=== PATIENT | female | born 1965 | race Caucasian/White ===

== ENCOUNTER → 2017-01-26 | Outpatient (CLI) | payer OTHER ==
[~2017-01-26] MED LIST: AMBIEN10 M1 PO; ASPIRIN325 M2 PO; BACTRIM DS 8001 TA1 PO; BENTYL20 MG PO; CIPRO500 MG PO; CLINDAMYCIN HC300 MG PO; CYCLOBENZAPRINE10 MG PO; Carafate1 GM PO; DARVOCET N 1001 TAB PO; DAYPRO600 M1 PO; DIFLUCAN150 MG PO; DOXYCYCLINE100 M3 PO; EUCERIN T; EUCERIN, DERMA120 GM T; FLEXERIL10 MG PO; FLUOXETINE40 MG PO; HEPARIN IV; HYDROCODONE BIT1 T11 PO; IMITREX50 MG PO; LASIX20 MG PO; LEVOFLOXACIN500 MG PO; LIPITOR80 MG PO; LUNESTA2 MG PO; MACROBID100 M1 PO; METFORMIN500 MG PO; MIRALAX POWDER17 G1 PO; MONISTAT 7100 MG VG; MONISTAT DERM2% T; MOTRIN800 MG PO; NEOSPORIN1 OIN T; NEURONTIN300 MG PO; NO DAILY MEDS; OXYCODONE HCL5 MG PO; PERCOCET 325 MG1 TA7 PO; PRILOSEC20 MG PO; PROZAC20 MG PO; ROXICODONE5 MG PO; SALINE FLUSH IV; Synthroid,Levo50 MCG PO; TUMS 500500 MG PO; VANCOMYCIN HYDRO1 GM IV; VICODIN 5/500 505 MG PO; VITAMIN D50000 I3 PO; XANAX2 M1 PO; XANAX2 MG PO; [UNRECOGNIZED DRUG - OTHER] IV
[2017-01-26 10:30] LABS: BASO % 0.3 % (0.0-1.0); EOS # 0.1 10*3/uL (0.0-0.4); EOS % 1.1 % (1.0-4.0); HEMATOCRIT 39.5 % (37.0-47.0); LYMPH # 2.3 10*3/uL (1.3-4.4); LYMPH % 20.7 % (27.0-41.0); MEAN CELL VOLUME 92.3 fl (81.0-99.0); MEAN CORPUSCULAR HGB 30.4 pg (27.0-31.0); MEAN CORPUSCULAR HGB CONC 32.9 g/dl (33.0-37.0); MEAN PLATELET VOLUME 9.1 fl (9.6-12.3); MONO # 0.7 10*3/uL (0.1-1.0); NEUT # 8.1 10*3/uL (2.3-7.9); NEUT % 71.7 % (47.0-73.0); PLATELET COUNT AUTOMATED 448 10*3/uL (130-400); RED BLOOD COUNT 4.28 10*6/uL (4.10-5.10); RED CELL DISTRI WIDTH 13.2 % (0-14.5); WHITE BLOOD COUNT 11.3 10*3/uL (4.8-10.8)
== END | disposition home or self-care (01) ==
LOC: ORTHO 09:11
PROVIDERS: Orthopaedic Surgery
DX: S83.8X2A Sprain of other specified parts of left knee, initial encounter (principal); L03.116 Cellulitis of left lower limb; M25.562 Pain in left knee; M25.462 Effusion, left knee; S83.242A Other tear of medial meniscus, current injury, left knee, initial encounter; Z89.9 Acquired absence of limb, unspecified; X58.XXXA Exposure to other specified factors, initial encounter; Y93.89 Activity, other specified; Y92.89 Other specified places as the place of occurrence of the external cause; Y99.8 Other external cause status

== ENCOUNTER → 2017-02-07 | Outpatient (CLI) | payer OTHER ==
[2017-02-07 12:24] LABS: BASO # 0.1 10*3/uL (0.0-0.1); BASO % 0.5 % (0.0-1.0); EOS # 0.1 10*3/uL (0.0-0.4); HEMATOCRIT 43.5 % (37.0-47.0); HEMOGLOBIN 13.9 g/dl (12.0-16.0); LYMPH % 29.8 % (27.0-41.0); MEAN CORPUSCULAR HGB 29.4 pg (27.0-31.0); MEAN PLATELET VOLUME 9.8 fl (9.6-12.3); MONO # 0.5 10*3/uL (0.1-1.0); MONO % 5.3 % (3.0-9.0); NEUT # 6.4 10*3/uL (2.3-7.9); NEUT % 63.1 % (47.0-73.0); PLATELET COUNT AUTOMATED 470 10*3/uL (130-400); RED BLOOD COUNT 4.73 10*6/uL (4.10-5.10); RED CELL DISTRI WIDTH 13.2 % (0-14.5); WHITE BLOOD COUNT 10.2 10*3/uL (4.8-10.8)
== END | disposition home or self-care (01) ==
LOC: ORTHO 01:57 → LAB 14:00 → ORTHO 17:26
PROVIDERS: Orthopaedic Surgery
DX: M25.562 Pain in left knee (principal); L03.116 Cellulitis of left lower limb

== ENCOUNTER → 2017-06-16 | Outpatient (CLI) | payer OTHER | END | disposition home or self-care (01) | LOC: MAMMO 10:11 | DX: Z12.31 Encounter for screening mammogram for malignant neoplasm of breast (principal) ==

== ENCOUNTER 2017-11-28 12:15 | Emergency (ER) | payer OTHER ==
[~2017-11-28] VITALS: Ht 167.6 cm; Wt 86.2 kg
[2017-11-28 12:20] VITALS: BP 144/90
== END 2017-11-28 13:12 | disposition home or self-care (01) ==
LOC: ED 12:15
DX: S90.31XA Contusion of right foot, initial encounter (principal); R03.0 Elevated blood-pressure reading, without diagnosis of hypertension; Z88.6 Allergy status to analgesic agent; Z79.82 Long term (current) use of aspirin; Z79.899 Other long term (current) drug therapy; W22.03XA Walked into furniture, initial encounter; Y93.89 Activity, other specified; Y92.89 Other specified places as the place of occurrence of the external cause; Y99.8 Other external cause status

== ENCOUNTER → 2020-06-12 | Outpatient (CLI) | payer OTHER | END | disposition home or self-care (01) | LOC: MAMMO 03:18 | PROVIDERS: ATTEND Physician Assistant | DX: Z12.31 Encounter for screening mammogram for malignant neoplasm of breast (principal) ==

== ENCOUNTER → 2021-12-21 | Outpatient (CLI) | payer OTHER | END | disposition home or self-care (01) | LOC: CARD 08:00 | PROVIDERS: ATTEND Physician Assistant | DX: R00.2 Palpitations (principal) ==

== ENCOUNTER 2022-03-13 22:11 | Emergency (ER) | payer OTHER ==
[~2022-03-13] VITALS: Ht 165.1 cm; Wt 94.3 kg
[2022-03-13 22:37] VITALS: BP 160/73
== END 2022-03-13 23:01 | disposition home or self-care (01) ==
LOC: ED 22:11
DX: U07.1 COVID-19 (principal); M79.89 Other specified soft tissue disorders; Z88.8 Allergy status to other drugs, medicaments and biological substances; Z79.82 Long term (current) use of aspirin; Z79.899 Other long term (current) drug therapy; Z90.710 Acquired absence of both cervix and uterus; Z90.49 Acquired absence of other specified parts of digestive tract; Z98.51 Tubal ligation status

== ENCOUNTER → 2022-03-14 | Outpatient (CLI) | payer OTHER | END | disposition home or self-care (01) | LOC: US 08:17 | PROVIDERS: ATTEND Internal Medicine | DX: U07.1 COVID-19 (principal); R22.42 Localized swelling, mass and lump, left lower limb ==

== ENCOUNTER → 2022-03-25 | Outpatient (CLI) | payer OTHER | END | disposition home or self-care (01) | LOC: MAMMO 00:08 | PROVIDERS: ATTEND Physician Assistant | DX: Z12.31 Encounter for screening mammogram for malignant neoplasm of breast (principal) ==

== ENCOUNTER → 2022-07-05 | Outpatient (CLI) | payer OTHER | END | disposition home or self-care (01) | LOC: MRI 07-02 08:00 | PROVIDERS: ATTEND Physician Assistant | DX: I67.82 Cerebral ischemia (principal); H53.8 Other visual disturbances; R90.82 White matter disease, unspecified ==

== ENCOUNTER → 2023-06-20 | Outpatient (CLI) | payer OTHER | END | disposition home or self-care (01) | LOC: RAD 06-17 00:32 | PROVIDERS: ATTEND Nurse Practitioner Women's Health | DX: S49.92XA Unspecified injury of left shoulder and upper arm, initial encounter (principal); M19.012 Primary osteoarthritis, left shoulder; W19.XXXA Unspecified fall, initial encounter; Y93.89 Activity, other specified; Y92.89 Other specified places as the place of occurrence of the external cause; Y99.8 Other external cause status ==

== ENCOUNTER → 2023-06-29 | Outpatient (CLI) | payer OTHER | END | disposition home or self-care (01) | LOC: MAMMO 01:25 | PROVIDERS: ATTEND Physician Assistant | DX: Z12.31 Encounter for screening mammogram for malignant neoplasm of breast (principal) ==

== ENCOUNTER → 2023-08-17 | Outpatient (CLI) | payer OTHER | END | disposition home or self-care (01) | LOC: MRI 08-12 00:27 | PROVIDERS: ATTEND Nurse Practitioner Women's Health | DX: S46.812A Strain of other muscles, fascia and tendons at shoulder and upper arm level, left arm, initial encounter (principal); M19.012 Primary osteoarthritis, left shoulder; M65.812 Other synovitis and tenosynovitis, left shoulder; M25.812 Other specified joint disorders, left shoulder; M79.602 Pain in left arm; X58.XXXA Exposure to other specified factors, initial encounter; Y93.89 Activity, other specified; Y92.89 Other specified places as the place of occurrence of the external cause; Y99.8 Other external cause status ==

== ENCOUNTER 2023-11-22 08:56 | Inpatient (IN) | payer OTHER ==
[~2023-11-22] VITALS: Ht 165.1 cm; Wt 88.1 kg
[~2023-11-22 08:56] MED LIST changes: -ASPIRIN325 M2 PO; +GOOD SENSE ASP325 MG PO
[2023-11-22 09:02] VITALS: BP 140/65
[2023-11-22 09:48] LABS: BASO % 0.4 % (0.0-1.0); EOS # 0.1 10*3/uL (0.0-0.4); EOS % 1.2 % (1.0-4.0); HEMATOCRIT 40.6 % (37.0-47.0); LYMPH % 22.3 % (27.0-41.0); MEAN CELL VOLUME 92.1 fl (81.0-99.0); MEAN CORPUSCULAR HGB 28.3 pg (27.0-31.0); MEAN CORPUSCULAR HGB CONC 30.8 g/dl (33.0-37.0); MEAN PLATELET VOLUME 9.2 fl (9.6-12.3); MONO # 0.5 10*3/uL (0.1-1.0); NEUT # 6.4 10*3/uL (2.3-7.9); NEUT % 70.8 % (47.0-73.0); PLATELET COUNT AUTOMATED 397 10*3/uL (130-400); RED BLOOD COUNT 4.41 10*6/uL (4.10-5.10); RED CELL DISTRI WIDTH 13.6 % (0-14.5); WHITE BLOOD COUNT 9.1 10*3/uL (4.8-10.8)
[2023-11-22 10:18] LABS: ALKALINE PHOSPHATASE 125 U/L (46-116); BUN 11 mg/dl (9-23); CHLORIDE 111 mmol/L (98-107); POTASSIUM 3.9 mmol/L (3.4-5.1); SGPT/ALT 38 U/L (5-49); TOTAL PROTEIN 7.2 gm/dL (6.0-8.0)
[2023-11-22] MEDS ORDERED: Piperacillin Sodium/Tazobact 50 ML IV ONE (11:25)
[2023-11-22] MEDS ORDERED: Vancomycin Hydrochloride 250 ML IV ONE (11:25)
[2023-11-22] MEDS ORDERED: SODIUM CHLORIDE 0.9% 1,000 ML IV ONE (11:25)
[2023-11-22] MEDS ORDERED: TOPAMAX100 M1 PO (11:53)
[2023-11-22] MEDS ORDERED: Magnesium Hydroxide 30 ML UDC PO PRN (12:00)
[2023-11-22] MEDS ORDERED: Acetaminophen/Hydrocodone 5 MG/325 MG TABLET PO PRN (12:00)
[2023-11-22] MEDS ORDERED: BISACODYL 5 MG TAB PO PRN (12:00)
[2023-11-22] MEDS ORDERED: MORPHINE Sulfate 2 MG/ML SYR IV PRN (12:00)
[2023-11-22] MEDS ORDERED: ACETAMINOPHEN 325 MG TAB PO PRN (12:00)
[2023-11-22] MEDS ORDERED: Ondansetron Hydrochloride 4 MG/2 ML VIAL IV PRN (12:00)
[2023-11-22 16:05] VITALS: BP 118/54
[2023-11-22] MEDS ORDERED: Piperacillin Sodium/Tazobact 50 ML IV SCH (18:00)
[2023-11-22 18:53] VITALS: BP 120/49
[2023-11-22 20:03] VITALS: BP 107/48
[2023-11-22 20:45] VITALS: BP 149/68
[2023-11-22] MEDS ORDERED: PANTOPRAZOLE SO40 MG PO (21:02)
[2023-11-22] MEDS ORDERED: VANCOMYCIN/WATER FOR INJ (PEG) 300 ML IV SCH (22:00)
[2023-11-23] VITALS: BP 92/44
[2023-11-23] MEDS ORDERED: Pantoprazole Sodium 40 MG TAB PO SCH (06:24)
[2023-11-23 06:29] LABS: BASO # 0.1 10*3/uL (0.0-0.1); BASO % 0.7 % (0.0-1.0); EOS # 0.2 10*3/uL (0.0-0.4); EOS % 2.2 % (1.0-4.0); HEMATOCRIT 36.8 % (37.0-47.0); LYMPH # 2.1 10*3/uL (1.3-4.4); LYMPH % 31.3 % (27.0-41.0); MEAN CORPUSCULAR HGB CONC 31.5 g/dl (33.0-37.0); MEAN PLATELET VOLUME 9.5 fl (9.6-12.3); MONO # 0.4 10*3/uL (0.1-1.0); MONO % 5.7 % (3.0-9.0); PLATELET COUNT AUTOMATED 359 10*3/uL (130-400); RED CELL DISTRI WIDTH 13.8 % (0-14.5); WHITE BLOOD COUNT 6.7 10*3/uL (4.8-10.8)
[2023-11-23 06:31] LABS: ACT PARTIAL THROMBO TIME 31.4 SECONDS (20.0-32.1)
[2023-11-23 06:44] LABS: ALKALINE PHOSPHATASE 118 U/L (46-116); BUN 11 mg/dl (9-23); CHLORIDE 112 mmol/L (98-107); CHOLESTEROL 127 mg/dL (<200); LDL CHOLESTEROL 64 mg/dL (9-159); POTASSIUM 3.6 mmol/L (3.4-5.1); SGPT/ALT 70 U/L (5-49); TOTAL PROTEIN 6.2 gm/dL (6.0-8.0); TRIGLYCERIDES 108 mg/dl (<150)
[2023-11-23 08:00] VITALS: BP 109/58
[2023-11-23] MEDS ORDERED: NYSTATIN 500,000 UNITS/5 ML UDC PO SCH ×2 (08:20→10:00)
[2023-11-23] MEDS ORDERED: Cholecalciferol 2,000 UNIT TABLET (50 MCG) PO SCH (10:00)
[2023-11-23] MEDS ORDERED: FUROSEMIDE 20 MG TAB PO SCH (10:00)
[2023-11-23] MEDS ORDERED: Fluoxetine Hydrochloride 20 MG CAP PO SCH (10:00)
[2023-11-23] MEDS ORDERED: Enoxaparin Sodium 40 MG/0.4 ML SYR SC SCH (11:35)
[2023-11-23 12:00] VITALS: BP 111/54
[2023-11-23] MEDS ORDERED: FLUCONAZOLE 150 MG TAB PO ONE (12:25)
[2023-11-23] MEDS ORDERED: GABAPENTIN 300 MG CAP PO SCH (14:00)
[2023-11-23 16:00] VITALS: BP 122/54
[2023-11-23 20:00] VITALS: BP 111/49
[2023-11-23] MEDS ORDERED: ATORVASTATIN CALCIUM 80 MG TAB PO SCH (22:00)
[2023-11-23] MEDS ORDERED: NYSTATIN CREAM 15 GM TUBE T SCH (22:00)
[2023-11-23] MEDS ORDERED: ASPIRIN 325 MG TAB PO SCH (22:00)
[2023-11-23] MEDS ORDERED: TOPIRAMATE 100 MG TAB PO SCH (22:00)
[2023-11-23] MEDS ORDERED: MUPIROCIN 15 GM TUBE T SCH (22:00)
[2023-11-24] VITALS: BP 100/47
[2023-11-24 06:28] LABS: BASO % 0.6 % (0.0-1.0); EOS # 0.2 10*3/uL (0.0-0.4); EOS % 2.5 % (1.0-4.0); HEMATOCRIT 37.7 % (37.0-47.0); MEAN CORPUSCULAR HGB 29.1 pg (27.0-31.0); MEAN CORPUSCULAR HGB CONC 32.4 g/dl (33.0-37.0); MEAN PLATELET VOLUME 9.2 fl (9.6-12.3); MONO # 0.5 10*3/uL (0.1-1.0); NEUT # 4.1 10*3/uL (2.3-7.9); NEUT % 59.8 % (47.0-73.0); PLATELET COUNT AUTOMATED 366 10*3/uL (130-400); RED BLOOD COUNT 4.19 10*6/uL (4.10-5.10); RED CELL DISTRI WIDTH 13.9 % (0-14.5); WHITE BLOOD COUNT 6.8 10*3/uL (4.8-10.8)
[2023-11-24 06:48] LABS: ALKALINE PHOSPHATASE 146 U/L (46-116); BUN 10 mg/dl (9-23); CHLORIDE 110 mmol/L (98-107); POTASSIUM 3.4 mmol/L (3.4-5.1); SGPT/ALT 176 U/L (5-49); TOTAL PROTEIN 6.5 gm/dL (6.0-8.0)
[2023-11-24 08:00] VITALS: BP 109/54
[2023-11-24 12:00] VITALS: BP 106/53
[2023-11-24 16:00] VITALS: BP 110/55
[2023-11-24 20:00] VITALS: BP 130/62
[2023-11-25] VITALS: BP 121/55
[2023-11-25 05:59] LABS: ALKALINE PHOSPHATASE 148 U/L (46-116); BUN 10 mg/dl (9-23); CHLORIDE 109 mmol/L (98-107); POTASSIUM 3.5 mmol/L (3.4-5.1); SGPT/ALT 158 U/L (5-49); TOTAL PROTEIN 6.9 gm/dL (6.0-8.0)
[2023-11-25] MEDS ORDERED: OXYCODONE HCL (IR) 5 MG TAB PO PRN (06:10)
[2023-11-25 08:00] VITALS: BP 130/66
[2023-11-25] MEDS ORDERED: VIBRA-TAB100 MG PO (11:17)
[2023-11-25] MEDS ORDERED: VITAMIN D350 MCG PO (11:17)
[2023-11-25] MEDS ORDERED: NYSTATIN CREAM15 GM T (11:17)
== END 2023-11-25 11:47 | disposition home or self-care (01) | DRG 565 ==
LOC: ED 08:56 → 5E 11:47 → EDHOLD 11:47 → 4E 19:50 → 5E 19:51
PROVIDERS: Family Medicine; Internal Medicine; ADMIT Internal Medicine; ATTEND Internal Medicine
DX: T87.40 Infection of amputation stump, unspecified extremity (principal); B37.0 Candidal stomatitis; G45.9 Transient cerebral ischemic attack, unspecified; L03.818 Cellulitis of other sites; K21.9 Gastro-esophageal reflux disease without esophagitis; E66.9 Obesity, unspecified; E87.8 Other disorders of electrolyte and fluid balance, not elsewhere classified; E78.5 Hyperlipidemia, unspecified; E11.69 Type 2 diabetes mellitus with other specified complication; R74.01 Elevation of levels of liver transaminase levels; E11.65 Type 2 diabetes mellitus with hyperglycemia; E55.9 Vitamin D deficiency, unspecified; Z88.6 Allergy status to analgesic agent; Z88.8 Allergy status to other drugs, medicaments and biological substances; Z90.49 Acquired absence of other specified parts of digestive tract; Z98.891 History of uterine scar from previous surgery; Z90.710 Acquired absence of both cervix and uterus; Z98.51 Tubal ligation status; Z83.3 Family history of diabetes mellitus; Z86.73 Personal history of transient ischemic attack (TIA), and cerebral infarction without residual deficits

== ENCOUNTER → 2024-05-02 | Outpatient (CLI) | payer OTHER ==
[~2024-05-02] MED LIST changes: +NYSTATIN CREAM15 GM T; +PANTOPRAZOLE SO40 MG PO; +TOPAMAX100 M1 PO; +VIBRA-TAB100 MG PO; +VITAMIN D350 MCG PO
== END | disposition home or self-care (01) ==
LOC: RAD 10:30
PROVIDERS: ATTEND Nurse Practitioner Women's Health
DX: R06.02 Shortness of breath (principal); R06.2 Wheezing

== ENCOUNTER → 2024-06-19 | Outpatient (CLI) | payer OTHER ==
[~2024-06-19] MED LIST changes: +AMOX-CLAV 875-1 EACH PO; +BARIUM SULFATE 96% 176 GM BOT PO ONE; +BARIUM SULFATE TABLET 700 MG PO ONE; +VIBRAMYCIN100 MG PO
== END | disposition home or self-care (01) ==
LOC: RAD 11:36
PROVIDERS: ATTEND Nurse Practitioner Women's Health
DX: T81.49XA Infection following a procedure, other surgical site, initial encounter (principal); X58.XXXA Exposure to other specified factors, initial encounter; Y93.89 Activity, other specified; Y92.89 Other specified places as the place of occurrence of the external cause; Y99.8 Other external cause status

== ENCOUNTER 2024-06-20 08:58 | Emergency (ER) | payer OTHER ==
[~2024-06-20] VITALS: Ht 165.1 cm; Wt 93.0 kg
[~2024-06-20 08:58] MED LIST changes: -AMOX-CLAV 875-1 EACH PO; -BARIUM SULFATE 96% 176 GM BOT PO ONE; -BARIUM SULFATE TABLET 700 MG PO ONE; -VIBRAMYCIN100 MG PO
[2024-06-20 09:20] VITALS: BP 123/73
[2024-06-20] MEDS ORDERED: Doxycycline Hyclate 100 MG CAP PO ONE (09:50)
[2024-06-20] MEDS ORDERED: Piperacillin Sodium/Tazobact 100 ML IV ONE (09:50)
[2024-06-20 09:53] LABS: BASO # 0.1 10*3/uL (0.0-0.1); BASO % 0.6 % (0.0-1.0); EOS # 0.2 10*3/uL (0.0-0.4); EOS % 2.1 % (1.0-4.0); HEMATOCRIT 37.4 % (37.0-47.0); MEAN CELL VOLUME 88.6 fl (81.0-99.0); MEAN CORPUSCULAR HGB 29.1 pg (27.0-31.0); MEAN CORPUSCULAR HGB CONC 32.9 g/dl (33.0-37.0); MEAN PLATELET VOLUME 9.2 fl (9.6-12.3); MONO # 0.6 10*3/uL (0.1-1.0); MONO % 5.4 % (3.0-9.0); NEUT # 7.3 10*3/uL (2.3-7.9); NEUT % 69.5 % (47.0-73.0); PLATELET COUNT AUTOMATED 366 10*3/uL (130-400); RED BLOOD COUNT 4.22 10*6/uL (4.10-5.10); RED CELL DISTRI WIDTH 14.1 % (0-14.5); WHITE BLOOD COUNT 10.5 10*3/uL (4.8-10.8)
[2024-06-20 10:14] LABS: ALKALINE PHOSPHATASE 127 U/L (46-116); BUN 8 mg/dl (9-23); CHLORIDE 111 mmol/L (98-107); LIPASE 32 U/L (12-53); POTASSIUM 3.6 mmol/L (3.4-5.1); SGPT/ALT 21 U/L (5-49); TOTAL PROTEIN 7.4 gm/dL (6.0-8.0)
[2024-06-20] MEDS ORDERED: Ondansetron Hydrochloride 4 MG/2 ML VIAL IV ONE (10:50)
[2024-06-20] MEDS ORDERED: HYDROmorphONE Hydrochloride 0.5 MG/0.5 ML SYRINGE IV ONE (10:50)
[2024-06-20] MEDS ORDERED: IOHEXOL 350 MG/ML 100 ML VIAL IV ONE (12:35)
[2024-06-20] MEDS ORDERED: SODIUM CHLORIDE 0.9% 100 ML BAG IV ONE (12:35)
[2024-06-20] MEDS ORDERED: AMOX-CLAV 875-1 EACH PO (14:20)
[2024-06-20] MEDS ORDERED: VIBRAMYCIN100 MG PO (14:20)
== END 2024-06-20 14:35 | disposition home or self-care (01) ==
LOC: ED 08:58
PROVIDERS: Emergency Medicine
DX: R07.89 Other chest pain (principal); L03.116 Cellulitis of left lower limb; Z88.6 Allergy status to analgesic agent; Z88.8 Allergy status to other drugs, medicaments and biological substances; Z79.899 Other long term (current) drug therapy; Z79.82 Long term (current) use of aspirin; Z90.710 Acquired absence of both cervix and uterus; Z98.890 Other specified postprocedural states; Z98.51 Tubal ligation status; Z90.49 Acquired absence of other specified parts of digestive tract; Z89.512 Acquired absence of left leg below knee

== ENCOUNTER 2025-02-06 10:44 | Emergency (ER) | payer OTHER ==
[~2025-02-06] VITALS: Ht 167.6 cm; Wt 95.3 kg
[~2025-02-06 10:44] MED LIST changes: +AMOX-CLAV 875-1 EACH PO; +VIBRAMYCIN100 MG PO
[2025-02-06 10:55] VITALS: BP 146/75
[2025-02-06] MEDS ORDERED: HYDROXYZINE HCL25 MG PO (11:14)
[2025-02-06] MEDS ORDERED: Dexamethasone Sodium Phospha 20 MG/5 ML VIAL IV ONE (11:25)
[2025-02-06] MEDS ORDERED: diphenhydrAMINE hydrochloride 50 MG/ML VIAL IV ONE (11:25)
[2025-02-06] MEDS ORDERED: SODIUM CHLORIDE 0.9% 1,000 ML IV ONE (11:25)
[2025-02-06] MEDS ORDERED: IOHEXOL 300 MG/ML 100 ML VIAL IV ONE (11:35)
[2025-02-06 11:51] LABS: BASO # 0.1 10*3/uL (0.0-0.1); BASO % 0.7 % (0.0-1.0); EOS # 0.2 10*3/uL (0.0-0.4); EOS % 2.3 % (1.0-4.0); MEAN CELL VOLUME 89.0 fl (81.0-99.0); MEAN CORPUSCULAR HGB 27.8 pg (27.0-31.0); MEAN PLATELET VOLUME 8.7 fl (9.6-12.3); MONO # 0.4 10*3/uL (0.1-1.0); MONO % 5.0 % (3.0-9.0); NEUT # 4.3 10*3/uL (2.3-7.9); NEUT % 61.4 % (47.0-73.0); NUCLEATED RED BLOOD CELL 0.0 % (0.0-0.0); NUCLEATED RED BLOOD CELL 0.0 10*3/uL (0.0-0.0); PLATELET COUNT AUTOMATED 386 10*3/uL (130-400); RED CELL DISTRI WIDTH 13.5 % (0-14.5)
[2025-02-06 12:12] LABS: BUN 8 mg/dl (9-23); SGPT/ALT 31 U/L (5-49)
== END 2025-02-06 14:52 | disposition home or self-care (01) ==
LOC: ED 10:44
PROVIDERS: Nurse Practitioner Family
DX: K29.70 Gastritis, unspecified, without bleeding (principal); R51.9 Headache, unspecified; F41.9 Anxiety disorder, unspecified; Z79.82 Long term (current) use of aspirin; Z79.899 Other long term (current) drug therapy; Z88.6 Allergy status to analgesic agent; Z88.8 Allergy status to other drugs, medicaments and biological substances; Z90.49 Acquired absence of other specified parts of digestive tract; Z90.710 Acquired absence of both cervix and uterus; Z98.890 Other specified postprocedural states

== ENCOUNTER → 2025-02-27 | Outpatient (CLI) | payer OTHER ==
[~2025-02-27] MED LIST changes: +HYDROXYZINE HCL25 MG PO
== END | disposition home or self-care (01) ==
LOC: MAMMO 01:18
PROVIDERS: ATTEND Nurse Practitioner Women's Health
DX: N64.4 Mastodynia (principal)